=== PATIENT | female | born 1975 | race African-American/Black ===

== ENCOUNTER → 2016-11-28 | Outpatient (CLI) | payer OTHER ==
[2014-02-19 15:50] VITALS: BP 136/73
--- NOTE | 2016-11-28 15:29 | KCIC ---
PROCEDURE CT abdomen pelvis without contrast. HISTORY Recurrent urinary tract infection. Weight loss. TECHNIQUE Helical CT imaging of the abdomen and pelvis is performed without IV or oral contrast. PQRS: One or more the following individualized dose reduction techniques were utilized for the study: 1. Automated exposure control. 2. Adjustment of the mA and/or kV according to patient size. 3. Use of iterative reconstruction technique. COMPARISON None. FINDINGS Evaluation of solid organs and bowel is limited without oral and IV contrast, decreasing sensitivity for detection of pathology. Lung bases clear. Cardiac size normal. Postsurgical changes of gastric bypass. The liver, gallbladder, spleen, pancreas, adrenal glands, abdominal aorta, kidneys are normal. No renal calculus or hydronephrosis. No dilated small bowel. Moderate stool throughout the colon. No evidence of colitis. The appendix is air-filled. Urinary bladder is normal. Atrophic or surgically absent uterus. Ovaries not well seen. There are tubal ligation clips, both clips are on the right. Mild pelvic free fluid. Bilateral inguinal lymph nodes may be reactive. The no acute bone abnormality. Incidental osteitis condensans ilii. IMPRESSION 1. No acute abdominal or pelvic abnormality on unenhanced CT. 2. Moderate colon stool volume. 3. Mild pelvic free fluid. 4. The left tubal ligation clip is probably malpositioned. Electronically signed by: Dixon Agarwal MD (Nov 28, 2016 15:28:29)
== END | disposition home or self-care (01) ==
LOC: KCIC CT 14:13
PROVIDERS: ATTEND Nurse Practitioner Occupational Health
DX: N39.0 Urinary tract infection, site not specified (principal); R63.4 Abnormal weight loss; K56.41 Fecal impaction; M85.38 Osteitis condensans, other site; Z98.84 Bariatric surgery status; Z98.51 Tubal ligation status; R60.9 Edema, unspecified
CPT/HCPCS: 74176

== ENCOUNTER → 2017-02-27 | Outpatient (CLI) | payer OTHER ==
[2014-02-19 15:50] VITALS: BP 136/73
--- NOTE | 2017-02-27 12:03 | KCIC ---
Thyroid ultrasound Indication: Adenopathy Technique: Multiple Realtime sonographic hays scale images were obtained over the neck. Static images were submitted for interpretation. Findings: FINDINGS: The right lobe of the thyroid measures 3.9 x 1.4 x 1.37 m. The left lobe measures 4.2 x 1.1 x 1.3 cm. The isthmus measures 0.2 cm in thickness. In the inferior pole of the right lobe, there is a solid nodule with internal vascularity that measures 1 cm in size. There is also a solid nodule in the isthmus that measures up to 0.9 cm and demonstrates some internal cystic change in vascularity. Several complex solid nodules are also seen in the left lobe, the largest of which is in the inferior pole measuring up to 0.8 cm. The area of palpable abnormality inferior to the right ear corresponds to a complex hypoechoic, partially cystic mass that measures 1.7 x 1.1 x 1.4 cm. A prominent lymph node in this area measures 1.2 x 0.5 x 1.7 cm. IMPRESSION: There is a complex mass measuring 1.7 x 1.1 x 1.4 cm corresponds to palpable abnormality inferior to the right ear. This does not appear to represent a lymph node. Consider biopsy or possibly followup imaging if managed conservatively. Electronically signed by: Erich Jolly MD (02/27/2017 11:59 AM)
== END | disposition home or self-care (01) ==
LOC: KCIC US 10:29
PROVIDERS: ATTEND Nurse Practitioner Family
DX: H93.8X1 Other specified disorders of right ear (principal)
CPT/HCPCS: 76536

== ENCOUNTER → 2018-12-14 | Outpatient (CLI) | payer OTHER ==
[2014-02-19 15:50] VITALS: BP 136/73
--- NOTE | 2018-12-14 11:30 | KCIC ---
3 views thoracic spine dated 12/14/2018. No comparison available. Clinical data indication: Pain for 4 days. FINDINGS: AP, lateral and swimmer's views obtained. Sagittal alignment is anatomic. Vertebral body heights are maintained. Mild endplate hypertrophic changes throughout. No paraspinous soft tissue abnormality. IMPRESSION: 1. No acute radiographic abnormality. 2. Mild multilevel spondylosis. Electronically signed by: Abdirizak Sethi MD (12/14/2018 11:27 AM) [facility]-[id number]
== END | disposition home or self-care (01) ==
LOC: KCIC 11:06
PROVIDERS: ATTEND Family Medicine
DX: M47.814 Spondylosis without myelopathy or radiculopathy, thoracic region (principal)
CPT/HCPCS: 72072

== ENCOUNTER → 2019-01-01 | Day surgery (SDC) | payer OTHER ==
[2014-02-19 15:50] VITALS: BP 136/73
[~2019-01-01] MED LIST: LIDOCAINE 1%/EPI 1:100,000 20 ML VIAL. INJ ONE
--- NOTE | 2019-01-01 12:56 | PDOC4 ---
Operative Note Operative Note Date: 01/01/2019 Preoperative diagnosis: Upper back mass Postoperative diagnosis: Same Procedure: Excision upper back mass Surgeon: Oneil Specimen: Mass of the upper back Dictation: Patient is 43-year-old female is complaining of a subcutaneous mass in the upper back is been getting larger and occasionally is painful when she leans up against it. Procedure of excision was explained to the patient detail risk benefits were also discussed including bleeding infection alternatives to this procedure also discussed with the patient who seemed to understand and gave both verbal and written consent to have the procedure performed. Patient was taken to the miners room placed in the prone positioning her upper neck and back were prepped and draped usual sterile fashion using ChloraPrep and area over the mass was injected with 1% lidocaine with epinephrine once this was anesthetized incision was made with 15 blade scalpel was carried down through the subcutaneous tissues down to the mass which appeared to be a lipoma which was completely excised sharply and sent for pathology. The wound was then closed in 2 layers deep layer running 3-0 Vicryl and the skin was approximate for subarticular Monocryl Mastisol Steri-Strips and island dressing were applied. A start procedure well was discharged home in stable condition. Estimated blood loss 5 mL QUINN HERNANDEZ MD Jan 01, 2019 12:56
--- NOTE | 2019-01-05 09:12 | PATHOLOGY ---
[facility] Accession Number: [id number] . 01 Material submitted: . UPPER BACK LIPOMA . 01 Clinical history: . None provided. . 02 Diagnosis: Fibroadipose tissue, upper back lesion excision: - Lipoma. (JPM:rema; 01/04/2019) MBR/01/04/2019 . 02 Comment: There is no evidence of malignancy. (JPM:rema; 01/04/2019) . 02 Electronically signed: . Anand Corbett MD, Pathologist NPI- [id number] . 01 Gross description: . Received in formalin labeled "Christiane Ga, upper back lipoma" is a yellow-haley, lobulated soft tissue mass measuring 5.8 x 5.0 x 3.0 cm. The external surface is inked black. The specimen is sectioned to reveal a yellow-haley, homogeneous cut surface without hemorrhage or necrosis. Set And Exhibit Designer sections are submitted in cassettes A1-A3, with two sections in each cassette. [place] [place] SYC/SYC . 02 Pathologist provided ICD-10: D17.79 . 02 CPT . 803904 Specimen Comment: A courtesy copy of this report has been sent to Specimen Comment: [phone]. Specimen Comment: Report sent to Performed at: 01 [facility] [address], [place] [id number] MD Nilesh Blank MD Phone: [phone] Performed at: 02 [facility] [address] [place], [place] [id number] MD Anand Corbett MD Phone: [phone]
== END | disposition home or self-care (01) ==
LOC: SURG 11:20
PROVIDERS: ATTEND Surgery
DX: D17.1 Benign lipomatous neoplasm of skin and subcutaneous tissue of trunk (principal); I10 Essential (primary) hypertension; E11.9 Type 2 diabetes mellitus without complications; J45.909 Unspecified asthma, uncomplicated; F32.9 Major depressive disorder, single episode, unspecified; F41.9 Anxiety disorder, unspecified; Z79.899 Other long term (current) drug therapy; Z79.2 Long term (current) use of antibiotics; Z98.51 Tubal ligation status; Z90.710 Acquired absence of both cervix and uterus; Z98.84 Bariatric surgery status; Z98.890 Other specified postprocedural states; Z82.61 Family history of arthritis; Z82.49 Family history of ischemic heart disease and other diseases of the circulatory system; Z82.0 Family history of epilepsy and other diseases of the nervous system; Z83.49 Family history of other endocrine, nutritional and metabolic diseases; Z88.6 Allergy status to analgesic agent; Z79.84 Long term (current) use of oral hypoglycemic drugs
CPT/HCPCS: 21931; 88304; J3490

== ENCOUNTER → 2020-08-15 | Outpatient (CLI) | payer MEDICAID ==
[2014-02-19 15:50] VITALS: BP 136/73
--- NOTE | 2020-08-15 17:08 | KCIC ---
Two-view right knee dated 08/15/2020. No comparison available. Clinical data indication: Pain. FINDINGS: 2 views the right knee show normal bony alignment. No displaced fracture. Moderate tricompartmental hypertrophic change with prominent marginal osteophytes. Possible small joint effusion. IMPRESSION: 1. No acute bony abnormality. 2. Moderate tricompartmental DJD. 3. Possible small joint effusion. Electronically signed by: Abdirizak Sethi MD (08/15/2020 5:05 PM) [id number]
== END ==
LOC: KCIC 14:27
PROVIDERS: ATTEND Family Medicine
DX: M17.11 Unilateral primary osteoarthritis, right knee (principal); M25.461 Effusion, right knee; G89.29 Other chronic pain
CPT/HCPCS: 73560

== ENCOUNTER → 2020-10-09 | Outpatient (CLI) | payer MEDICAID ==
[2014-02-19 15:50] VITALS: BP 136/73
[~2020-10-09] MED LIST changes: +ALBU2.5V8 IH; +ALPR0.5T6 PO; +AMIT25TA PO; +CETI10TA74 PO; +CITA20TA9 PO; +ESTR42.53 VG; -LIDOCAINE 1%/EPI 1:100,000 20 ML VIAL. INJ ONE; +MELA10TA PO; +MOME13HF2 IH; +MULT-121 PO; +OMEP40CA45 PO; +OXYC5CAP PO; +POLY17PO29 PO; +TRAM100T2 PO; +WARF7.5T45 PO
[2020-10-09 09:18] LABS: BASO % 1 % (0-3); EOS # 0.1 x10^3/uL (0.0-0.7); EOS % 4 % (0-3); HEMATOCRIT 40.1 % (36.0-47.0); HEMOGLOBIN 13.4 g/dL (12.0-15.5); LYMPH # 1.2 x10^3/uL (1.0-4.8); LYMPH % 33 % (24-48); MEAN CORPUSCULAR HEMOGLOBIN 29 pg (25-35); MEAN CORPUSCULAR HGB CONC 33 g/dL (31-37); MEAN CORPUSCULAR VOLUME 85 fL (79-100); MONO # 0.3 x10^3/uL (0.0-1.1); MONO % 8 % (0-9); NEUT % 54 % (31-73); PLATELET COUNT 315 x10^3/uL (140-400); RED BLOOD COUNT 4.69 x10^6/uL (3.50-5.40); RED CELL DISTRIBUTION WIDTH 14.2 % (11.5-14.5); WHITE BLOOD COUNT 3.6 x10^3/uL (4.0-11.0)
[2020-10-09 09:25] LABS: ALBUMIN 3.4 g/dL (3.4-5.0); C-REACTIVE PROTEIN 2.1 mg/L (0-3.3); CALCIUM 8.7 mg/dL (8.5-10.1); CREATININE 0.6 mg/dL (0.6-1.0); GFR 130.8; POTASSIUM 4.3 mmol/L (3.5-5.1)
[2020-10-09 09:35] LABS: PROTHROMBIN TIME PATIENT 14.1 SEC (11.7-14.0)
--- NOTE | 2020-10-09 12:57 | RAD ---
EXAM: Chest, 2 views. HISTORY: Hypertension. COMPARISON: None. FINDINGS: 2 views of the chest are obtained. There is no infiltrate, pleural effusion or pneumothorax . The heart is normal in size. IMPRESSION: No acute pulmonary finding. Electronically signed by: Fabiana Malloy MD (10/09/2020 12:55 PM) [id number]
--- NOTE | 2020-10-09 12:58 | EKG ---
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
[2020-10-10 01:17] LABS: HEMOGLOBIN A1C 5.4 % (4.8-5.6)
== END ==
LOC: SURGPAT 12:42
PROVIDERS: ATTEND Orthopaedic Surgery
DX: Z01.818 Encounter for other preprocedural examination (principal); M17.0 Bilateral primary osteoarthritis of knee; I10 Essential (primary) hypertension
CPT/HCPCS: 36415; 71046; 80048; 82040; 82306; 83036; 85025; 85610; 85730; 86140; 87641; 93005

== ENCOUNTER → 2020-10-27 | Outpatient (CLI) | payer MEDICAID ==
[2014-02-19 15:50] VITALS: BP 136/73
[~2020-10-27] MED LIST changes: -OXYC5CAP PO; -WARF7.5T45 PO
== END ==
LOC: LAB 10:02
PROVIDERS: ATTEND Orthopaedic Surgery
DX: Z01.812 Encounter for preprocedural laboratory examination (principal); Z20.828 Contact with and (suspected) exposure to other viral communicable diseases
CPT/HCPCS: U0003

== ENCOUNTER 2020-10-31 06:07 | Inpatient (IN) | payer MEDICAID ==
[2020-10-31] VITALS (8 sets, daily range): BP systolic 135–145; BP diastolic 86–97
[~2020-10-31] VITALS: Ht 160 cm; Wt 103.0 kg
[~2020-10-31 06:07] MED LIST changes: +ACETAMINOPHEN 500 MG TABLET PO PRN; +MELOXICAM 7.5 MG TABLET PO PRN; +MORPHINE SULFATE 5 MG, KETOROLAC 30MG VIAL 30 MG, ROPIVacaine 0.5% PF 60 ML, EPINEPHrin... INT ART ONE; -OMEP40CA45 PO; +OMEP40CA7 PO; +TRANEXAMIC ACID 1,000 MG in IV NS 50ML -- 1ST BAG INJ ONE
[2020-10-31] MEDS ORDERED: WARFARIN 5 MG TABLET. PO ONE ×2 (06:30→16:00)
[2020-10-31] MEDS ORDERED: diphenhydrAMINE 50 MG/ML VIAL IVP PRN (06:30)
[2020-10-31] MEDS ORDERED: CALCIUM CARBONATE 500 MG TAB.CHEW PO PRN (06:30)
[2020-10-31] MEDS ORDERED: 0.9 % SODIUM CHLORIDE 10 ML DISP.SYRIN. IV PRN (06:30)
[2020-10-31] MEDS ORDERED: ZOLPIDEM 5 MG TABLET. PO PRN (06:30)
[2020-10-31] MEDS ORDERED: MORPHINE SULFATE 2 MG/ML VIAL. IVP PRN (06:30)
[2020-10-31] MEDS ORDERED: DEXTROSE 50% 25 GM / 50ML DISP.SYRIN. IV PRN (06:30)
[2020-10-31] MEDS ORDERED: PROPOFOL 10 MG/ML (20ML) VIAL. IV ONE ×2 (06:30→09:11)
[2020-10-31] MEDS ORDERED: fentaNYL PF VIAL 100 MCG/2 ML VIAL IVP PRN (06:30)
[2020-10-31] MEDS ORDERED: PROCHLORPERAZINE 5 MG TABLET. PO PRN (06:30)
[2020-10-31] MEDS ORDERED: LIDOCAINE 2% PF 5 ML VIAL. ONE (06:30)
[2020-10-31] MEDS ORDERED: ONDANSETRON PF 4 MG/2 ML VIAL. ONE (06:31)
[2020-10-31] MEDS ORDERED: DEXAMETHASONE SOD PHOS 4 MG/ML VIAL ONE (06:31)
[2020-10-31] MEDS ORDERED: SCOPOLAMINE 1.5MG PATCH. TD ONE (06:45)
[2020-10-31] MEDS ORDERED: MIDAZOLAM HCL/PF 2 MG/2 ML VIAL. ONE (06:56)
[2020-10-31] MEDS ORDERED: fentaNYL PF VIAL 250 MCG/5 ML VIAL ONE (06:56)
[2020-10-31] MEDS ORDERED: IV RINGERS,LACTATED 1000ML 1,000 ML IV SCH (07:00)
[2020-10-31] MEDS ORDERED: PROCHLORPERAZINE 10 MG/2 ML VIAL. IV PRN (07:00)
[2020-10-31] MEDS ORDERED: CETIRIZINE HCL 10 MG TABLET. PO PRN (07:00)
[2020-10-31] MEDS ORDERED: ESTRADIOL 0.01% VAGINAL CREAM 42.5GM TUBE. VG PRN (07:00)
[2020-10-31] MEDS ORDERED: LIDOCAINE 1% PF 2 ML VIAL. ID PRN (07:00)
[2020-10-31] MEDS ORDERED: fentaNYL PF VIAL 100 MCG/2 ML VIAL IV PRN (07:00)
[2020-10-31] MEDS ORDERED: ALBUTEROL SULFATE 2.5 MG/3 ML NEBU. INH PRN (07:00)
[2020-10-31] MEDS ORDERED: ONDANSETRON PF 4 MG/2 ML VIAL. IV PRN (07:00)
[2020-10-31] MEDS ORDERED: NON FORMULARY ITEM (Mometasone/Formoterol (Dulera 100 Mcg/5 Mcg Inhaler) 2 PUFF) IH PRN (07:00)
[2020-10-31] MEDS ORDERED: TRAMADOL HCL 100 MG PO PRN (07:00)
--- NOTE | 2020-10-31 07:05 | HP ---
ADMIT DATE: 10/31/2020 CHIEF COMPLAINT: Degenerative right knee and pain. HISTORY OF PRESENT ILLNESS: The patient has a several-year history of right knee pain getting successively worse over the past couple of years and severely affecting her activities of daily living despite a 45-pound weight loss and she cannot take conventional anti-inflammatories orally due to the weight loss surgery restrictions. She also had corticosteroids injections, the last of which was in 06/2020 and stated that it did not work at all. We had discussed risks, benefits, and postoperative course of potential total knee arthroplasty at that time and she is here today for that surgery. PAST MEDICAL HISTORY: Significant for hypertension, asthma, non-insulin dependent diabetes, depression, allergies, keloids and Sjogren's syndrome. PAST SURGICAL HISTORY: Gastric bypass surgery, breast reduction, vaginal hysterectomy, ear and salivary gland surgeries, excision of lipomas on her back and revision of her gastric bypass. FAMILY HISTORY: Seizures in her mother. Hyperlipidemia and arthritis in her father. Cancer in some of her grandparents and has siblings and children that are healthy. SOCIAL HISTORY: Denies smoking or drug use. Occasional social alcohol use. She is , , but states her is with her today. She is relatively sedentary. MEDICATIONS: List is reviewed. ALLERGIES: INCLUDE TRAZODONE, WHICH GIVE HER SIDE EFFECTS OF NIGHTMARES. REVIEW OF SYSTEMS: Denies any recent febrile illness, chest pain, shortness of breath or other constitutional symptoms, otherwise negative 14-point review of systems. PHYSICAL EXAMINATION: VITAL SIGNS: Height 63 inches, weight 227, BMI is 40.2. Other vitals per admission sheet. HEENT: Atraumatic, normocephalic. HEART: Regular rate and rhythm. LUNGS: Clear to auscultation bilaterally. ABDOMEN: Benign. EXTREMITIES: Examination of the right knee, she has about a 4-5 degree flexion contracture, very slight flexion contracture on the left and flexion about 110 degrees bilaterally. Normal motion and stability of bilateral hips and ankles and her gait is antalgic. IMAGING: X-rays show severe tricompartmental degenerative changes with bone on bone medial compartment in the right knee: Left knee shows some moderate degenerative changes tricompartmentally and she has severe joint line tenderness medial more so than lateral on the right knee, much worse than the left. Aside from medial collateral ligament pseudolaxity, ligaments are intact. ASSESSMENT: Primary osteoarthritis of both knees and primarily right knee pain. TREATMENT PLAN: We had previously gone over risks, benefits, and postoperative course of right knee replacement as she has an exhausted her nonoperative treatment options and basically met the weight loss requirements. We covered the possibility of infection, premature wear or loosening, continued pain, nerve or blood vessel damage, medical or other anesthetic complications among others and she wishes to proceed with surgical evaluation and treatment, which will include [facility] observation to follow. FATOU MCKOY MD DR: VICKI/magui JOB#: [id number] / [id number]
[2020-10-31] MEDS: GABAPENTIN 300 MG CAPSULE. PO PRN (07:17)
[2020-10-31] MEDS ORDERED: VANCOMYCIN 1 GM VIAL. ONE (07:17)
[2020-10-31] MEDS ORDERED: TRANEXAMIC ACID 1,000 MG in IV NS 50ML -- 2ND BAG INJ ONE (08:00)
[2020-10-31] MEDS: INSULIN LISPRO 300 UNITS/3 ML VIAL. SQ SCH ×3 (08:00→17:00)
[2020-10-31] MEDS: FERROUS SULFATE 325 MG TABLET. PO SCH ×2 (08:00→16:58)
[2020-10-31] MEDS ORDERED: HYDROmorphone 2 MG/ML VIAL ONE ×2 (08:17→10:47)
[2020-10-31] MEDS: SENNOSIDES/DOCUSATE 8.6/50MG TABLET. PO SCH (09:00)
[2020-10-31] MEDS: MULTIVITAMIN with MINERAL TABLET. PO SCH (09:00)
[2020-10-31] MEDS ORDERED: fentaNYL PF VIAL 100 MCG/2 ML VIAL ONE (09:56)
[2020-10-31] MEDS: fentaNYL PF VIAL 100 MCG/2 ML VIAL IV PRN ×2 (09:59→10:15)
[2020-10-31] MEDS ORDERED: MORPHINE SULFATE 2 MG/ML VIAL. ONE (10:25)
[2020-10-31] MEDS: MORPHINE SULFATE 2 MG/ML VIAL. IV PRN ×2 (10:28→10:38)
[2020-10-31] MEDS ORDERED: PROCHLORPERAZINE 10 MG/2 ML VIAL. ONE (10:35)
--- NOTE | 2020-10-31 10:40 | RAD ---
XR KNEE_RT 1-2 VIEWS History: Reason: POST OP RIGHT KNEE ARTHROPLASTY / Spl. Instructions: / History: Technique: 2 views right knee. Comparison: September 11, 2020 Findings: Interval right total knee arthroplasty. Expected postoperative findings. Normal alignment. No fractur e. Surgical drain noted. Impression: 1. Interval right total knee arthroplasty. No immediate hardware complications. Electronically signed by: Florentino Osman DO (10/31/2020 10:38 AM) [id number]
[2020-10-31] MEDS: HYDROmorphone 2 MG/ML VIAL IV PRN ×2 (10:52→11:05)
[2020-10-31 11:24] LABS: PROTHROMBIN TIME PATIENT 14.3 SEC (11.7-14.0)
[2020-10-31] MEDS: ONDANSETRON ODT 4 MG TAB.RAPDIS. PO SCH ×2 (12:00→18:00)
[2020-10-31] MEDS: ALBUTEROL SULFATE 2.5 MG/3 ML NEBU. NEB SCH ×3 (12:00→20:00)
--- NOTE | 2020-10-31 12:05 | NUR ---
Arrived to unit by bed from PACU. Drowsy but awakens easily. Spouse at bedside. Right leg dressing is d/i with PIA and Hemovac drain. Able to wiggle toes easily, warm touch and Pedal pulses + bilaterally. IVF's intact and infusing. O2 removed Sating at 94%. MEL on right foot only, left has S/L. Oriented to room and controls. Side rails up x's 2 with call light in reach. No c/o at this time.
[2020-10-31] MEDS: IV NORMAL SALINE 1000ML BAG 1,000 ML IV SCH (13:21)
[2020-10-31] MEDS: ONDANSETRON PF 4 MG/2 ML VIAL. IVP SCH ×2 (13:22→18:00)
[2020-10-31] MEDS: KETOROLAC 30MG VIAL 30 MG, BUPIVACAINE MPF 0.25% 20 ML, EPINEPHrine 0.5 MG in TOTAL VOL... INT ART SCH (16:32)
[2020-10-31] MEDS: oxyCODONE IR 5 MG TABLET PO PRN ×2 (17:05→21:00)
--- NOTE | 2020-10-31 17:49 | PDOC4 ---
Operative Note Operative Note Date of surgery: 10/31/2020 Preoperative diagnosis: Right knee degenerative joint disease Postoperative diagnosis: Same Operative procedure: Right total knee arthroplasty Surgeon: Sole Assistants: Jose chris Anesthesia: General Estimated blood loss: 25 cc Complications: None Specimens: Cartilage surfaces to pathology Drains: None Operative indications: Please see my dictated preoperative history and physical and clinic notes for detailed operative indications Operative text: Patient was identified procedure verified patient placed in the supine position on the operating table. After adequate amounts of general anesthesia were administered the right lower extremity was prepped and draped in standard sterile fashion with a thigh tourniquet. After timeout was performed patient procedure identified and verified the right lower extremity was exsanguinated by Esmarch bandage tourniquet inflated to 300 mmHg. A midline inc ision was made with a mid vastus extending to a medial parapatellar approach. Patella was everted fat pad was excised and synovectomy was performed due to the significant irritation observed. Distal femur was drilled and the distal femur was cut in the standard position. Proximal tibia cut was made with the extra- articular cutting jig adjusted to achieve alignment with the second toe. Distal femur was sized at a size 6 AP and chamfer cuts were made and flexion extension balancing carried out. A size D tibial component was placed along with a size 6 femur persona standard component with a medial congruent 14 mm trial component. Excellent ligament balance and stability were noted both in flexion and extension. Tibia was drilled and broached and femoral lugs were drilled. Trial components were removed through irrigation carried out with normal saline solution. The following components were then cemented in place with polymethylmethacrylate cement: A size D persona tibial component. A size 6 standard persona femoral component. Excess cement was removed and a vitamin E medial congruent spacer 14 mm height was locked in place. Dilute Betadine lavage was then used and followed up with normal saline solution and pulse lavage. Intra-articular mixture was injected subperiosteally and throughout the joint capsule. Hemovac drain and intra-articular catheter were then placed. 1 g vancomycin was placed in the knee joint and closure of the medial approach was carried out with running #1 PDS strata fix suture. Subcutaneous closure with buried Vicryl suture subcuticular closure with 3-0 strata fix Monocryl. Ernesto dressing was placed patient was returned to recovery room in stable condition having tolerated procedure well toes were noted to be warm pink following deflation of the tourniquet. Jose chris was present for the procedure and assisted in the patient positioning prepping draping retraction closure and dressings. FATOU MCKOY MD Oct 31, 2020 17:49
--- NOTE | 2020-10-31 18:02 | NUR ---
Zofran IV and PO not given. Pt tolerating po well.
[2020-10-31] MEDS: ALPRAZolam 0.5 MG TABLET PO PRN (19:54)
[2020-10-31] MEDS ORDERED: BUDESONIDE 0.5 MG/2 ML NEBU. NEB SCH (20:00)
[2020-10-31] MEDS: AMITRIPTYLINE HCL 25 MG TABLET. PO SCH (20:51)
[2020-10-31] MEDS: CITALOPRAM 20 MG TABLET. PO SCH (20:51)
[2020-10-31] MEDS ORDERED: NON FORMULARY ITEM (Melatonin 10 MG) PO SCH (21:00)
[2020-10-31] MEDS ORDERED: ALBUTEROL SULFATE 2.5 MG/3 ML NEBU. NEB PRN (21:15)
[2020-10-31] MEDS ORDERED: BUDESONIDE 0.5 MG/2 ML NEBU. NEB PRN (21:15)
--- NOTE | 2020-10-31 22:00 | NUR ---
Unable to void. Bladder scan shows 754cc. Straight cathed for 800cc. Pt tolerated well.
[2020-11-01 03:04] VITALS: BP 135/85
[2020-11-01] MEDS: oxyCODONE IR 5 MG TABLET PO PRN ×5 (03:10→20:27)
[2020-11-01] MEDS: KETOROLAC 30MG VIAL 30 MG, BUPIVACAINE MPF 0.25% 20 ML, EPINEPHrine 0.5 MG in TOTAL VOL... INT ART SCH (06:00)
[2020-11-01] MEDS ORDERED: MAGNESIUM HYDROXIDE 2,400 MG/30 ML ORAL.SUSP. PO PRN (06:00)
[2020-11-01] MEDS: ONDANSETRON ODT 4 MG TAB.RAPDIS. PO SCH ×2 (06:00)
[2020-11-01] MEDS: ONDANSETRON PF 4 MG/2 ML VIAL. IVP SCH ×2 (06:00)
[2020-11-01] MEDS: GABAPENTIN 100 MG CAPSULE. PO SCH ×3 (06:02→21:24)
[2020-11-01] MEDS: traMADol 50 MG TABLET PO SCH ×3 (06:03→17:20)
[2020-11-01] MEDS: PANTOPRAZOLE 40 MG TABLET.DR. PO SCH (06:03)
[2020-11-01] MEDS: IV NORMAL SALINE 1000ML BAG 1,000 ML IV SCH (06:09)
[2020-11-01 06:36] VITALS: BP 179/114
[2020-11-01] MEDS: INSULIN LISPRO 300 UNITS/3 ML VIAL. SQ SCH ×3 (08:00→16:03)
[2020-11-01] MEDS: SENNOSIDES/DOCUSATE 8.6/50MG TABLET. PO SCH (08:05)
[2020-11-01] MEDS: MULTIVITAMIN with MINERAL TABLET. PO SCH (08:06)
[2020-11-01] MEDS: ACETAMINOPHEN 500 MG TABLET PO SCH ×3 (08:06→20:27)
[2020-11-01] MEDS: MELOXICAM 7.5 MG TABLET PO SCH (08:06)
[2020-11-01] MEDS: FERROUS SULFATE 325 MG TABLET. PO SCH ×2 (08:06→14:56)
--- NOTE | 2020-11-01 08:56 | PDOC ---
PROGRESS NOTES Date of Service DATE: 11/01/20 TIME: 08:51 Subjective Subjective Problems overnight: Right knee is painful, still getting the pain medications adequate. Vitals show some hypertension and tachycardia but she is in no distress Objective Vital Signs Vital Signs Date Time Temp Pulse Resp B/P (MAP) Pulse Ox O2 Delivery O2 Flow Rate FiO2 11/01/20 08:05 99 Room Air 11/01/20 06:36 98.9 100 20 179/114 (135) 98.9 10/31/20 12:28 94.0 Physical Exam Ernesto dressing is intact as is Hemovac drain distal neurovascular status intact knee is painful but stable Labs Laboratory Tests Test 10/31/20 10:57 10/31/20 17:00 11/01/20 06:24 Prothrombin Time 14.3 SEC (11.7-14.0) Prothromb Time International Ratio 1.2 (0.8-1.1) Activated Partial Thromboplast Time 33 SEC (24-38) Glucose (Fingerstick) 120 mg/dL (70-99) 113 mg/dL (70-99) Laboratory Tests Test 10/31/20 10:57 10/31/20 17:00 11/01/20 06:24 Prothrombin Time 14.3 SEC (11.7-14.0) Prothromb Time International Ratio 1.2 (0.8-1.1) Activated Partial Thromboplast Time 33 SEC (24-38) Glucose (Fingerstick) 120 mg/dL (70-99) 113 mg/dL (70-99) Imaging Postop x-rays show excellent alignment of a right total knee arthroplasty Assessment Assessment POD#1 right total knee arthroplasty Plan Plan of Care Continue mobilize with weightbearing as tolerated standard total knee protocol She has never had high blood pressure and current thoughts are it may be due to pain, we will adjust pain medications for better control at present Warfarin anticoagulation Justicifation of Admission Dx: Justifications for Admission: Justification of Admission Dx: Yes (Currently requiring IV pain medications a bit hypertensive and tachycardic as well) FATOU MCKOY MD Nov 01, 2020 08:56
[2020-11-01 08:58] LABS: PROTHROMBIN TIME PATIENT 16.2 SEC (11.7-14.0)
[2020-11-01 09:00] VITALS: BP 145/99
[2020-11-01 10:55] LABS: HEMATOCRIT 36.8 % (36.0-47.0)
[2020-11-01] MEDS ORDERED: ONDANSETRON ODT 4 MG TAB.RAPDIS. PO PRN (12:00)
[2020-11-01] MEDS ORDERED: ONDANSETRON PF 4 MG/2 ML VIAL. IVP PRN (12:00)
--- NOTE | 2020-11-01 12:35 | NUR ---
Pharmacy Warfarin Dosing Note S:Pharmacy consulted to assist with anticoagulation therapy started 10/30/20 with target INR: 1.6 - 2.5 O:JOHANA WHITE Ramin is a 45 year old F with TKA LABS: Last INR: 1.3 Last HGB: 12 Last HCT: 36.8 Last PLT: - Last dose of 5 mg given on 10/31/20 at 1658 Previous Regimen: Vitamin K given: N Drug Interaction Changes: Same Interacting Drug Ongoing Drug Interactions: CITALOPRAM A:INR of 1.3 is below desired range. Target range for this patient is: 1.6 - 2.5 P: Warfarin dose: 5 mg Today at 1600 Bridge Therapy: none Next INR due tomorrow Pharmacy anticoagulation service will continue to follow. Radha Ware RPH, 11/01/20 0711
--- NOTE | 2020-11-01 13:42 | NUR ---
Patient was complaining of pain in her left foot where the IV was located so it was discontinued this AM with no concerns noted. She also was unable to void on her own after multiple attempts today so this nurse spoke with Dr Whipple and obtained an order for a coon catheter which was placed by sterile technique around 1220 with 850ml of straw colored urine noted. Hemovac removed without complications and a foam dressing was applied this afternoon as well. PIA is still CDI and working properly. Will continue to monitor.
[2020-11-01] MEDS ORDERED: BISACODYL 10 MG SUPP.RECT. PR PRN (16:00)
[2020-11-01] MEDS ORDERED: WARFARIN 5 MG TABLET. PO ONE (16:00)
[2020-11-01 17:22] VITALS: BP 133/81
[2020-11-01] MEDS: AMITRIPTYLINE HCL 25 MG TABLET. PO SCH (20:26)
[2020-11-01] MEDS: CITALOPRAM 20 MG TABLET. PO SCH (20:27)
[2020-11-01] MEDS: ALPRAZolam 0.5 MG TABLET PO PRN (21:24)
[2020-11-02] MEDS: traMADol 50 MG TABLET PO SCH ×4 (00:03→18:20)
[2020-11-02] MEDS: ACETAMINOPHEN 500 MG TABLET PO SCH ×4 (03:36→21:26)
[2020-11-02] MEDS: oxyCODONE IR 5 MG TABLET PO PRN ×5 (03:36→22:18)
[2020-11-02] MEDS: GABAPENTIN 100 MG CAPSULE. PO SCH ×3 (06:03→21:26)
[2020-11-02] MEDS: PANTOPRAZOLE 40 MG TABLET.DR. PO SCH (06:04)
[2020-11-02 06:20] VITALS: BP 128/82
[2020-11-02] MEDS: SENNOSIDES/DOCUSATE 8.6/50MG TABLET. PO SCH (08:26)
[2020-11-02] MEDS: MULTIVITAMIN with MINERAL TABLET. PO SCH (08:26)
[2020-11-02] MEDS: FERROUS SULFATE 325 MG TABLET. PO SCH ×2 (08:27→17:07)
[2020-11-02] MEDS: MELOXICAM 7.5 MG TABLET PO SCH (08:45)
[2020-11-02 09:09] LABS: HEMATOCRIT 34.9 % (36.0-47.0); HEMOGLOBIN 11.6 g/dL (12.0-15.5)
[2020-11-02 09:25] LABS: PROTHROMBIN TIME PATIENT 18.5 SEC (11.7-14.0)
--- NOTE | 2020-11-02 10:31 | NUR ---
Christiane is complaining that her pain is a "7" this am. medicated with Roxicodone. reviewed the medication she was stating that the nurse last night just gave her Tylenol. explained that the Tylenol is on a schedule but she can have something strong; v/u of this. Singh catheter removed and will attempt to void without the catheter.
--- NOTE | 2020-11-02 10:40 | NUR ---
Pharmacy Warfarin Dosing Note S:Pharmacy consulted to assist with anticoagulation therapy started 10/30/20 with target INR: 1.6 - 2.5 O:JOHANA WHITE Ramin is a 45 year old F with TKA LABS: Last INR: 1.6 Last HGB: 12 Last HCT: 36.8 Last PLT: - Last dose of 5 mg given on 11/01/20 at 1658 Previous Regimen: Vitamin K given: N Drug Interaction Changes: Same Interacting Drug Ongoing Drug Interactions: CITALOPRAM A:INR of 1.6 is within desired range. Target range for this patient is: 1.6 - 2.5 P: Warfarin dose: 5 mg Today at 1600 Bridge Therapy: Next INR due IN AM Pharmacy anticoagulation service will continue to follow. HIMANSHU BRADLEY [facility], 11/02/20 [id number]
--- NOTE | 2020-11-02 12:50 | PDOC ---
PROGRESS NOTES Date of Service DATE: 11/02/20 TIME: 12:46 Subjective Subjective Problems overnight: Had catheter in overnight due to urinary retention, right knee is swollen and painful Objective Vital Signs Vital Signs Date Time Temp Pulse Resp B/P (MAP) Pulse Ox O2 Delivery O2 Flow Rate FiO2 11/02/20 08:15 Room Air 11/02/20 06:20 98.7 100 16 128/82 (97) 95 98.7 10/31/20 12:28 94.0 Physical Exam Right knee is swollen but akosua dressing is intact ligaments are stable distal neurovascular status intact Labs Laboratory Tests Test 10/31/20 17:00 11/01/20 06:24 11/01/20 07:05 11/01/20 16:01 Glucose (Fingerstick) 120 mg/dL (70-99) 113 mg/dL (70-99) 82 mg/dL (70-99) Hemoglobin 12.0 g/dL (12.0-15.5) Hematocrit 36.8 % (36.0-47.0) Mean Corpuscular Hemoglobin Concent 33 g/dL (31-37) Prothrombin Time 16.2 SEC (11.7-14.0) Prothromb Time International Ratio 1.3 (0.8-1.1) Test 11/02/20 06:14 11/02/20 08:40 Glucose (Fingerstick) 101 mg/dL (70-99) Hemoglobin 11.6 g/dL (12.0-15.5) Hematocrit 34.9 % (36.0-47.0) Mean Corpuscular Hemoglobin Concent 33 g/dL (31-37) Prothrombin Time 18.5 SEC (11.7-14.0) Prothromb Time International Ratio 1.6 (0.8-1.1) Laboratory Tests Test 11/01/20 16:01 11/02/20 06:14 11/02/20 08:40 Glucose (Fingerstick) 82 mg/dL (70-99) 101 mg/dL (70-99) Hemoglobin 11.6 g/dL (12.0-15.5) Hematocrit 34.9 % (36.0-47.0) Mean Corpuscular Hemoglobin Concent 33 g/dL (31-37) Prothrombin Time 18.5 SEC (11.7-14.0) Prothromb Time International Ratio 1.6 (0.8-1.1) Assessment Assessment POD#2 right total knee arthroplasty Plan Plan of Care Talked about trial of removal of catheter, she has had difficulties previously with anesthesia and some urinary retention issues does not take any medications for it, I told her sometimes it helps to get up and around more with physical therapy to stimulate muscles etc. Continue mobilize with physical therapy weightbearing as tolerated Warfarin anticoagulation Justicifation of Admission Dx: Justifications for Admission: Justification of Admission Dx: Yes (Postop urinary retention going to do a trial of discontinuing her Singh catheter) FATOU MCKOY MD Nov 02, 2020 12:50
[2020-11-02] MEDS: GABAPENTIN 300 MG CAPSULE. PO PRN (15:11)
[2020-11-02] MEDS ORDERED: WARFARIN 3 MG TABLET. PO ONE (16:00)
[2020-11-02] MEDS ORDERED: WARFARIN 5 MG TABLET. PO ONE (16:00)
--- NOTE | 2020-11-02 16:17 | NUR ---
attempted to void. unable to void. bladder scan obtained-601cc . straight cath with return 500 cc yellow urine will try to void on own.
[2020-11-02] MEDS: TAMSULOSIN 0.4 MG CAP.ER.24H. PO SCH (17:07)
[2020-11-02 18:34] VITALS: BP 132/86
[2020-11-02] MEDS: CITALOPRAM 20 MG TABLET. PO SCH (21:26)
[2020-11-02] MEDS: AMITRIPTYLINE HCL 25 MG TABLET. PO SCH (21:26)
--- NOTE | 2020-11-02 22:00 | NUR ---
Patient unable to void. 604 cc per bladder scanner. Straight catheter placed using sterile technique, clear yellow urine currently draining into bag.
--- NOTE | 2020-11-02 22:15 | NUR ---
Straight catheter removed and 650cc clear yellow urine drained from straight catheter. Patient tolerated straight catheter without c/o. Patient will continue to attempt to void on her own. Patient states "I have always had trouble going to restroom after anesthesia."
[2020-11-02] MEDS: ALPRAZolam 0.5 MG TABLET PO PRN (22:17)
[2020-11-03] MEDS: traMADol 50 MG TABLET PO SCH ×3 (00:34→14:56)
[2020-11-03] MEDS: ACETAMINOPHEN 500 MG TABLET PO SCH ×2 (02:54→08:12)
[2020-11-03] MEDS: oxyCODONE IR 5 MG TABLET PO PRN ×3 (02:55→13:04)
[2020-11-03 06:18] VITALS: BP 107/68
[2020-11-03] MEDS: GABAPENTIN 100 MG CAPSULE. PO SCH ×2 (06:19→12:11)
[2020-11-03] MEDS: PANTOPRAZOLE 40 MG TABLET.DR. PO SCH (06:20)
--- NOTE | 2020-11-03 07:10 | NUR ---
Patient has not had urge to void. Bladder scan revealed 568cc. Patient in restroom attempting to void. Dr. Whipple called and aware of Patient unable to void, Dr. Whipple states he will be in to see Patient.
[2020-11-03] MEDS ORDERED: OXYC5CAP PO (07:20)
--- NOTE | 2020-11-03 07:24 | SNU/HH DC ---
DISCHARGE WITH HOME HEALTH DISCHARGE INFORMATION: Discharge Date: Nov 03, 2020 Final Diagnosis: Status post right total knee arthroplasty Condition on Discharge: Stable CODE STATUS: Code Status: Full HOME HEALTH: Face to Face: I certify this patient is under my care and that I, or a nurse practitioner or physician's porcelain buildup assistant working with me, had a face to face encounter that meets the physician face to face encounter requirements with this patient on [11/03/20]. Medical Complications: S/P Joint Replacement Alf For: Assess/Skilled Observatio RN For Eval/Treatment: Yes Physical Therapy For: Evalulation/Treatment Pt Meets Homebound Status: Limited distance walking POST DISCHARGE ORDERS: Activity Instructions for Disc: Progressive ambulation Weight Bearing Status after Di: As tolerated Bathing Instructions: Shower-keep dressing dry DIET AFTER DISCHARGE: Regular Wound/Incision Care: Ice to area for comfort, Keep wound elevated, Do not change dressing (Call if dressing is saturated, otherwise when suction machine stops cut tail of dressing and tape over to maintain seal) FOLLOW-UP: Follow up with: Dr. Whipple 2 weeks postop, call [phone] for appointment TREATMENT/EQUIPMENT ORDERS: Adaptive Equipment Issued: Front wheeled walker CERTIFICATION STATEMENT: Certification Statement: Certification Statement: Based on the above finding, I certify that this patient is confined to the home and needs intermittent residential care, physical therapy and/or speech therapy, or continues to need occupational therapy.~ This patient is under my care, and I have initiated the establishment of the plan of care.~ This patient will be followed by myself or a community physician who will periodically review the plan of care. Home Meds Reported Medications Tramadol Hcl (TRAMADOL HCL) 100 Mg Tbmp.24hr, 100 MG PO Q6H PRN for PAIN, TAB 0 Refills 10/10/20 Citalopram Hydrobromide (CELEXA) 20 Mg Tablet, 20 MG PO HS for DEPRESSION, TAB 10/10/20 Amitriptyline Hcl (AMITRIPTYLINE HCL) 25 Mg Tablet, 25 MG PO QHS for INSOMNIA, TAB 10/10/20 Alprazolam (ALPRAZOLAM) 0.5 Mg Tablet, 0.5 MG PO PRN HS PRN for ANXIETY / AGITATION, TAB 0 Refills 10/10/20 Melatonin (MELATONIN) 10 Mg Tablet, 10 MG PO QHS for INSOMNIA, TAB 10/10/20 Cetirizine Hcl (ZYRTEC) 10 Mg Tablet, 10 MG PO PRN DAILY PRN for ALLERGIES, TAB 10/10/20 Polyethylene Glycol 3350 (MIRALAX) 17 Gm Powd.pack, 1 PKT PO DAILY for CONSTIPATION, PKT 10/10/20 Estradiol (ESTRACE) 42.5 Gm Cream.appl, 1 JOHN VG PRN DAILY PRN for ESTROGEN REPLACEMENT, EACH 10/10/20 Multivitamin (MULTIPLE VITAMINS) 1 Each Tablet, 1 EACH PO DAILY for SUPPLEMENT, TAB 10/10/20 Mometasone/Formoterol (DULERA 100 MCG/5 MCG INHALER) 13 Gm Hfa.aer.ad, 2 PUFF IH PRN Q4-6HRS PRN for WHEEZING, INHALER 10/10/20 Albuterol Sulfate (Proair Hfa) 8.5 Gm Hfa.aer.ad, 2 PUFF IH PRN Q4-6HRS PRN for wheezing for 21 Days, #1 INHALER 0 Refills 10/10/20 Omeprazole (OMEPRAZOLE) 40 Mg Capsule., 40 MG PO DAILY for REFLUX TREATMENT, CAP 10/10/20 FATOU WHIPPLE MD Nov 03, 2020 07:24
[2020-11-03] MEDS: TAMSULOSIN 0.4 MG CAP.ER.24H. PO SCH (07:40)
[2020-11-03] MEDS: SENNOSIDES/DOCUSATE 8.6/50MG TABLET. PO SCH (07:41)
[2020-11-03] MEDS: MELOXICAM 7.5 MG TABLET PO SCH (07:41)
[2020-11-03] MEDS: MULTIVITAMIN with MINERAL TABLET. PO SCH (07:41)
[2020-11-03 08:00] LABS: HEMOGLOBIN 11.4 g/dL (12.0-15.5)
[2020-11-03] MEDS ORDERED: MAGNESIUM HYDROXIDE 2,400 MG/30 ML ORAL.SUSP. PO ONE (08:00)
[2020-11-03] MEDS: FERROUS SULFATE 325 MG TABLET. PO SCH (08:00)
[2020-11-03] MEDS: BETHANECHOL CHLORIDE 10 MG TABLET. PO PRN ×5 (08:12→12:07)
[2020-11-03 08:14] LABS: PROTHROMBIN TIME PATIENT 17.7 SEC (11.7-14.0)
--- NOTE | 2020-11-03 08:29 | NUR ---
unable to void. states no urge. will start a bethanechol trial. will straight cath when uncomfortable. am dose of flomax given. Dr. Whipple does not want her going home with indwelling cath. will cont to monitor
--- NOTE | 2020-11-03 10:19 | NUR ---
Pharmacy Warfarin Dosing Note S: Pharmacy consulted to assist with anticoagulation therapy started 10/30/20 O: JOHANA WHITE Ramin is a 45 year old F with TKA LABS: Last INR: 1.5 Last HGB: 11.4 Last HCT: 35.0 Last dose of 5 mg given on 11/02/20 at 1708 Ongoing Drug Interactions: CITALOPRAM,MELOXICAM A:INR of 1.5 is below desired range. Target range for this patient is: 1.6 - 2.5 P: Warfarin dose: 7.5 mg Today at 1600 Next INR due 1/30 AM Pharmacy anticoagulation service will continue to follow. PAT ANDERSEN RPH, 11/03/20 1019
[2020-11-03 11:45] VITALS: BP 114/71
--- NOTE | 2020-11-03 12:09 | NUR ---
finished the bethanechol x5. she was able to void 150 cc manisha urine "pushed it out" encouraged to drink fluids and will allow to attempt to void on her own. will discontinue gabapentin since it has a rare side effect of urinary retention
--- NOTE | 2020-11-03 13:38 | NUR ---
voided 150cc bladder scan obtained 315cc. Dr. Whipple will attempt to void one more time then allow to go home. will ogo home on bethanechol
[2020-11-03] MEDS ORDERED: WARFARIN 7.5 MG TABLET. PO ONE (14:15)
--- NOTE | 2020-11-03 14:18 | NUR ---
script to terri called to [facility] [place]
[2020-11-03] MEDS ORDERED: WARF7.5T45 PO (14:26)
--- NOTE | 2020-11-03 15:19 | NUR ---
reviewed discharge instructions with Christiane. discussed new medications Coumadin, bethanechol oxycodone. discussed restrictions to activities of daily living such as bathing follow up with Dr. Whipple and follow up with primary physician regarding the inability to void after surgery. she verbalized understanding taking care of incision and dressing.
--- NOTE | 2020-11-03 15:26 | NUR ---
voided 500 cc at 1 time. dismissed to home with
[2020-11-03] MEDS ORDERED: WARFARIN 3 MG TABLET. PO ONE (16:00)
--- NOTE | 2020-11-04 11:10 | DS ---
DATE OF DISCHARGE: 11/03/2020 ORTHOPEDIC DISCHARGE SUMMARY PRINCIPAL DIAGNOSIS: Degenerative joint disease, right knee. PROCEDURE: Right total knee arthroplasty. ADDITIONAL DIAGNOSIS: Urinary retention postoperatively. DISPOSITION: Home with home health. ACTIVITY: Weightbearing as tolerated, standard total knee precautions. Follow up with Dr. Whipple in 2 weeks postoperatively. DISPOSITION MEDICATIONS: Include warfarin per anticoagulation clinic, oxycodone 5 mg p.o. q. 4 hours p.r.n. pain and bethanechol 10 mg p.o. t.i.d. planned for about 5 days for urinary retention and resume preoperative medications. BRIEF DESCRIPTION OF HOSPITAL COURSE: The patient underwent uncomplicated right total knee arthroplasty and had some initial pain management issues and also had some postoperative urinary retention and required a couple of instances of straight catheterization and a Singh catheter was then left due to her ongoing retention. On discontinuance of the Singh, she continued to have issues and required straight catheterization. She was started initially on Flomax, but then on bethanechol 10 mg p.o. and was voiding initially partially on her own and better since she was a bit more ambulatory and was discharged. She remained otherwise medically stable, but following adequate voiding was discharged home with home health in stable condition with the recommendations for bethanechol 10 mg three times daily for about the next 5-7 days to help treat her symptoms of the urinary retention. FATOU WHIPPLE MD DR: VICKI/[email or web address] JOB#: [id number] / [id number]
== END 2020-11-03 15:33 | disposition home health service (06) | DRG 470 ==
LOC: SURG 06:07 → 4 SOUTHEST 06:30 → OBSVTOIN 11-02 10:40
PROVIDERS: ADMIT Orthopaedic Surgery; ATTEND Orthopaedic Surgery
PROC: 0SRC0J9 Replacement of Right Knee Joint with Synthetic Substitute, Cemented, Open Approach (ICD-10-PCS; principal; 2020-10-31 07:30)
DX: M17.0 Bilateral primary osteoarthritis of knee (principal); I10 Essential (primary) hypertension; J45.909 Unspecified asthma, uncomplicated; E11.9 Type 2 diabetes mellitus without complications; M35.00 Sjogren syndrome, unspecified; R33.9 Retention of urine, unspecified; F32.9 Major depressive disorder, single episode, unspecified; Z82.61 Family history of arthritis; Z90.710 Acquired absence of both cervix and uterus; Z98.84 Bariatric surgery status; Z79.84 Long term (current) use of oral hypoglycemic drugs
CPT/HCPCS: 36415; 73560; 82962; 85014; 85018; 85610; 85730; 86850; 86900; 86901; 88304; 88311; 94640; C1713; G0378; G0379; J0171; J0690; J0780; J1100; J1170; J1885; J2250; J2270; J2405; J2704; J2795; J3010; J3370; J3490; J7030; J7120; 97116-GP; 97150-GP; 97530-GO; 97530-GP; 97535-GO; C1769; J7613